=== PATIENT | female | born 1980 | race Caucasian/White ===

== ENCOUNTER → 2024-01-18 13:26 | Outpatient (BNVA) | payer OTHER, SELFPAY | PROVIDERS: Visit Provider Physician Assistant Medical | DX: S60.211A Contusion of right wrist, initial encounter (principal); Y04.2XXA Assault by strike against or bumped into by another person, initial encounter | CPT/HCPCS: 73200; 99203 ==

== ENCOUNTER → 2024-01-25 14:47 | Outpatient (BNVA) | payer OTHER, SELFPAY | PROVIDERS: Visit Provider Physician Assistant Medical | DX: S60.211A Contusion of right wrist, initial encounter (principal); Y04.2XXA Assault by strike against or bumped into by another person, initial encounter | CPT/HCPCS: 99213 ==